=== PATIENT | male | born 1995 | race Caucasian/White ===

== ENCOUNTER 2018-01-24 01:08 | Observation (INO) | payer BC ==
[~2018-01-24] VITALS: Ht 177.8 cm; Wt 92.8 kg
[2018-01-24] MEDS ORDERED: SODIUM CHLORIDE 0.9% 1000ML 1,000 ML IV STA ×2 (01:29→02:03)
--- NOTE | 2018-01-24 01:32 | EMERGENCY ROOM VISIT NOTE ---
History Report prepared by Adam: Trish Quiroz Under the Supervision of: Dr. Bryan Hebert M.D. First contact with patient: 01:18 Chief Complaint: CONFUSION Stated Complaint: CONFUSION Nursing Triage Summary: pt brought to ed via ems from home. per ems pts mother was talking to the pt 2 hours prior and he was very confused. pt has history of disautonomia and she was concerned. per ems pt was alert and oriented x 4. pt reports that he is in the hospital and know his name and birthday. pt is not oriented to time or situation. History of Present Illness The patient is a 22 year old male who presents to the Emergency Room with complaints of persistent general confusion since 0000 today. Per EMS, the mother called 911 because the patient seemed confused over the phone. The patient states that he does not remember talking to his mother and he cannot remember what he did over the weekend. The patient knows he is in the hospital and that he arrived here via ambulance. EMS brought in a significant amount of prescriptions with the patient. The patient states it is a possibility that he may have taken too much of his medication, though he is unsure. He denies any thoughts of self-harm or any history of SI. He denies any thoughts of self- harm. He reports a history of insomnia and takes Lunesta. He also reports taking Zoloft. He notes increased tiredness. He denies any abdominal pain, chest pain, headache, shortness of breath, back pain, leg swelling, or urinary symptoms. He denies any double vision or other visual changes. He denies any drug use. He reports being a student. He thinks he is a [employer] in college, though is unsure. He denies any recent exercise or supplement use. Source of History: patient Onset: 0000 today Position: other (general) Quality: other (confusion) Timing: other (persistent) Associated Symptoms: No headache, No chest pain, No SOB, No abdominal pain, No back pain, No urinary symptoms Note: Notes increased tiredness. Denies leg swelling, double vision, or vision changes. Review of Systems See HPI for pertinent positives & negatives. A total of 10 systems reviewed and were otherwise negative. Past Medical & Surgical Medical Problems: (1) Confusion and disorientation (2) Dysautonomia (3) Kinney disease Surgical Problems: (1) H/O foot surgery Family History Diabetes mellitus FHx: cancer FHx: heart disease Hypertension Social History Smoking Status: Never Smoker Smokeless Tobacco Use: No Alcohol Use: occasionally (3/week) Drug Use: marijuana (medical marijuana) Housing Status: lives alone Occupation Status: unemployed, [employer] student Current/Historical Medications Scheduled Amphetamine-Dextroamphetamine 25MG (Adderall Xr 25MG), 25 MG PO QAM Cetirizine (Zyrtec), 10 MG PO DAILY Fluticasone Propionate (Nasal) (Flonase Allergy Relief), 2 SPRY ERIN QAM Montelukast Sodium (Singulair), 10 MG PO QPM Pyridostigmine [place] (Mestinon Timespan), 180 MG PO BID Sertraline Hcl (Zoloft), 25 MG PO QPM Scheduled PRN Lorazepam (Ativan), 0.5 MG PO DAILY PRN for Anxiety Allergies Uncoded Allergies: PEANUTS (Allergy, Unknown, anaphylaxis, 01/24/18) Physical Exam Vital Signs Date Time Temp Pulse Resp B/P (MAP) Pulse Ox O2 Delivery O2 Flow Rate FiO2 01/24/18 03:30 93 12 158/73 98 Room Air 01/24/18 03:00 83 15 162/90 99 01/24/18 02:30 84 23 146/93 100 01/24/18 01:57 82 160/89 110 160/97 115 156/102 01/24/18 01:22 98 01/24/18 01:13 36.9 102 24 154/87 98 Room Air Physical Exam GENERAL: Patient is dehydrated appearing and in no acute distress. Appears slightly anticholinergic. EYES: No scleral icterus, unremarkable pupils. ENT: Mucous membranes dry, no nasal congestion. NECK: No masses appreciated, no meningismus, trachea is midline. RESPIRATORY: No dyspnea. Clear to auscultation and equal bilaterally. No wheeze , no rhonchi. CARDIOVASCULAR: Tachycardic rate and regular rhythm. No murmurs, rubs, gallops appreciated. GASTROINTESTINAL: Abdomen soft, nontender, no peritonitis. Bowel sounds positive. No masses appreciated. BACK: No midline tenderness, no CVA tenderness EXTREMITIES: Normal motion all extremities, no cyanosis, no edema. NEUROLOGIC: Confused, but alert and oriented, answers questions, though is vague on recent details. Appears to be trying to answer questions properly. No acute motor or sensory deficits, no focal weakness, cranial nerves grossly intact. SKIN: No rash, no jaundice, no diaphoresis. Medical Decision & Procedures ER Provider Diagnostic Interpretation: Radiology results and stated below per my review and radiologist interpretation : CT HEAD: No acute infarct, hemorrhage, mass or edema. No acute osseous abnormality. Sinuses are patent. Radiologist: Gera Vargas MD Study ready at 02:08 and initial results transmitted at 02:22 Laboratory Results 01/24/18 01:44 Red Blood Count 5.24, Mean Corpuscular Volume 85.1, Mean Corpuscular Hemoglobin 31.5, Mean Corpuscular Hemoglobin Concent 37.0, Mean Platelet Volume 9.2, Neutrophils (%) (Auto) 73.0, Lymphocytes (%) (Auto) 19.5, Monocytes (%) (Auto) 6.8, Eosinophils (%) (Auto) 0.3, Basophils (%) (Auto) 0.2, Neutrophils # (Auto) 7.28, Lymphocytes # (Auto) 1.94, Monocytes # (Auto) 0.68, Eosinophils # (Auto) 0.03, Basophils # (Auto) 0.02 01/24/18 01:44 Test 01/24/18 01:44 01/24/18 01:54 White Blood Count 9.97 K/uL (4.8-10.8) Red Blood Count 5.24 M/uL (4.7-6.1) Hemoglobin 16.5 g/dL (14.0-18.0) Hematocrit 44.6 % (42-52) Mean Corpuscular Volume 85.1 fL (80-100) Mean Corpuscular Hemoglobin 31.5 pg (25-34) Mean Corpuscular Hemoglobin Concent 37.0 g/dl (32-36) Platelet Count 227 K/uL (130-400) Mean Platelet Volume 9.2 fL (7.4-10.4) Neutrophils (%) (Auto) 73.0 % Lymphocytes (%) (Auto) 19.5 % Monocytes (%) (Auto) 6.8 % Eosinophils (%) (Auto) 0.3 % Basophils (%) (Auto) 0.2 % Neutrophils # (Auto) 7.28 K/uL (1.4-6.5) Lymphocytes # (Auto) 1.94 K/uL (1.2-3.4) Monocytes # (Auto) 0.68 K/uL (0.11-0.59) Eosinophils # (Auto) 0.03 K/uL (0-0.5) Basophils # (Auto) 0.02 K/uL (0-0.2) RDW Standard Deviation 36.2 fL (36.4-46.3) RDW Coefficient of Variation 11.8 % (11.5-14.5) Immature Granulocyte % (Auto) 0.2 % Immature Granulocyte # (Auto) 0.02 K/uL (0.00-0.02) Venous Blood pH 7.44 (7.36-7.41) Venous Blood Partial Pressure CO2 40 mmHg (38.0-50.0) Venous Blood Partial Pressure O2 51 mmHg Venous Blood HCO3 27 mmol/L Venous Blood Oxygen Saturation 84.9 % Venous Blood Base Excess 2.6 mEq/L Anion Gap 9.0 mmol/L (3-11) Est Creatinine Clear Calc Drug Dose 139.7 ml/min Estimated GFR () 131.2 Estimated GFR (Non- 113.2 BUN/Creatinine Ratio 12.6 (10-20) Osmolality 289 mOsm/kg (280-300) Calcium Level 9.1 mg/dl (8.5-10.1) Total Bilirubin 0.6 mg/dl (0.2-1) Aspartate Amino Transf (AST/SGOT) 20 U/L (15-37) Alanine Aminotransferase (ALT/SGPT) 23 U/L (12-78) Alkaline Phosphatase 51 U/L (45-117) Total Creatine Kinase 199 U/L (39-308) Total Protein 8.1 gm/dl (6.4-8.2) Albumin 4.5 gm/dl (3.4-5.0) Globulin 3.6 gm/dl (2.5-4.0) Albumin/Globulin Ratio 1.3 (0.9-2) Thyroid Stimulating Hormone (TSH) 3.210 uIu/ml (0.300-4.500) Salicylates Level < 1.7 mg/dl (2.8-20) Acetaminophen Level < 2 ug/ml (10-30) Ethyl Alcohol mg/dL < 3.0 mg/dl (0-3) Urine Color YELLOW Urine Appearance CLEAR (CLEAR) Urine pH 6.5 (4.5-7.5) Urine Specific [place] 1.021 (1.000-1.030) Urine Protein NEG (NEG) Urine Glucose (UA) NEG (NEG) Urine Ketones 1+ (NEG) Urine Occult Blood NEG (NEG) Urine Nitrite NEG (NEG) Urine Bilirubin NEG (NEG) Urine Urobilinogen NEG (NEG) Urine Leukocyte Esterase NEG (NEG) Urine WBC (Auto) 1-5 /hpf (0-5) Urine RBC (Auto) 0-4 /hpf (0-4) Urine Hyaline Casts (Auto) 1-5 /lpf (0-5) Urine Epithelial Cells (Auto) 0-5 /lpf (0-5) Urine Bacteria (Auto) NEG (NEG) Bedside Lactic Acid Venous 0.61 mmol/L (0.90-1.70) Urine Opiates Screen NEG (NEG) Urine Methadone, Qualitative NEG (NEG) Urine Barbiturates NEG (NEG) Urine Phencyclidine (PCP) Level NEG (NEG) Ur Amphetamine/Methamphetamine NEG (NEG) MDMA (Ecstasy) Screen NEG (NEG) Urine Benzodiazepines Screen NEG (NEG) Urine Cocaine Metabolite NEG (NEG) Urine Marijuana (THC) POS (NEG) Laboratory results as reviewed by me. Medications Administered Medications (Trade) Dose Ordered Sig/Swapna Route Start Time Stop Time Status Last Admin Dose Admin Sodium Chloride 1,000 ml @ 999 mls/hr Q1H1M STAT IV 01/24/18 01:29 01/24/18 02:29 DC 01/24/18 02:11 999 MLS/HR Sodium Chloride 1,000 ml @ 999 mls/hr Q1H1M STAT IV 01/24/18 02:03 01/24/18 03:03 DC 01/24/18 02:52 999 MLS/HR ECG Per My Interpretation Indication: altered mental status Rate (beats per minute): 89 Rhythm: normal sinus Findings: no acute ischemic change, no ectopy, other (Borderline criteria HTN, QTC 418, and QRS 78.) ED Course 0123: The patient was evaluated in room A2. A complete history and physical exam was performed. 0156: I spoke with the patients mother via the phone. She last spoke with the patient at 1300 yesterday and states that he was fine at that time. She spoke with him again at 0000 today and states that he was acting odd. She reports that he recently began medical marijuana treatment. She notes that he has had an episode similar to this a couple of years ago when he was diagnosed with dysautonomia. She agrees with workup and treatment plan as discussed. 0230: I reassessed the patient at this time. The patient is still tachycardic. 0253: I reassessed the patient at this time. I spoke with the patient's mother. He is still confused. She notes this episode is worse than his previous episode. She notes that he may have accidently overdosed on Mucinex this weekend. She states he recently had sinus congestion. 0311: I spoke with Dr. Cantu, hospitalist resident for Dr. Bryant. We discussed the patient's case. The patient will be evaluated by the [facility] for further management. 0429: I spoke with Dr. Bryant, [facility] hospitalist. We discussed the patient's case. He reports the patient has a history of Kinney disease. Medical Decision Differential: Toxicological, Infectious, Stroke, SAH, Trauma, Electrolyte Abnormality, Hypoglycemia, Alcohol Intoxication, Drug Intoxication, Cardiac Abnormality, Sepsis, Meningitis/Encephalitis, Trauma, Excited Delirium, Serotonin Syndrome, Psychiatric, amongst other pathologies entertained. 22 yr old male with known autonomic dysfunction issues arrives for evaluation of confusion that is apparently similar to previous episodes of crisis though seems worse than last time. On evaluation patient in minimal distress though is clearly confused but not altered/meningitic at all. He is dry appearing, tachycardic, and hypertensive. This with his confusion makes me concerned that he is anticholinergic and after going through his medication of which multiple could case this, including the entire empty blister pack of musinex. Given 2 L NSS and looking a bit better though still with confusion. He had EKG which was unremarkable. CT head looks OK. Labs look good with normal CK, normal Cr, normal WBC. No evidence of overdose of tyl/yoselyn and only positive in drug screen is marijuana which he has prescription for per mother. He was not significantly agitated thus I felt no need to given Ativan at this time. With normal work-up I feel that no need to get poison control involved at this time. He has no photo/phonophobia, no fevers, no wbc elevation, no nuchal ridgidity nor other findings of meningitis, thus I feel risks of LP outweigh benefits. Mother at bedside agrees with plan for hospitalist evaluation. Medication Reconcilliation Current Medication List: was personally reviewed by me Blood Pressure Screening Patient's blood pressure: Elevated blood pressure monitored by hospitalist Consults Time Called: [phone] Consulting Physician: Dr. Cantu, hospitalist resident for Dr. Bryant Returned Call: [phone] Cantu, hospitalist resident for Dr. Bryant. We discussed the patient's case. The patient will be evaluated by the [facility] for further management. 0429: I spoke with Dr. Bryant, [facility] hospitalist. We discussed the patient's case. He reports the patient has a history of Kinney disease. Impression Primary Impression: Confusion Additional Impression: Anticholinergic syndrome Scribe Attestation The scribe's documentation has been prepared under my direction and personally reviewed by me in its entirety. I confirm that the note above accurately reflects all work, treatment, procedures, and medical decision making performed by me. Departure Information Dispostion Being Evaluated By Hospitalist Patient Instructions My [facility] Problem Qualifiers
[2018-01-24 02:01] LABS: BASO % 0.2 %; BASO ABS # 0.02 K/uL (0-0.2); EOS % 0.3 %; EOS ABS # 0.03 K/uL (0-0.5); HEMATOCRIT 44.6 % (42-52); HEMOGLOBIN 16.5 g/dL (14.0-18.0); IG# 0.02 K/uL (0.00-0.02); LYMPH % 19.5 %; LYMPH ABS # 1.94 K/uL (1.2-3.4); MEAN CELL VOLUME 85.1 fL (80-100); MEAN CORPUSCULAR HEMOGLOBIN 31.5 pg (25-34); MEAN PLATELET VOLUME 9.2 fL (7.4-10.4); MONO % 6.8 %; MONO ABS # 0.68 K/uL (0.11-0.59); NEUT ABS # 7.28 K/uL (1.4-6.5); PLATELET COUNT 227 K/uL (130-400); RED CELL DISTRIBUTION WIDTH CV 11.8 % (11.5-14.5); RED CELL DISTRIBUTION WIDTH SD 36.2 fL (36.4-46.3); WHITE BLOOD COUNT 9.97 K/uL (4.8-10.8)
[2018-01-24 02:23] LABS: ALBUMIN 4.5 gm/dl (3.4-5.0); CALCIUM 9.1 mg/dl (8.5-10.1); CREATININE 0.95 mg/dl (0.60-1.40); POTASSIUM 3.5 mmol/L (3.5-5.1)
[2018-01-24 02:34] LABS: TOTAL PROTEIN 8.1 gm/dl (6.4-8.2)
[2018-01-24] MEDS ORDERED: MSTSR180 PO (03:07)
[2018-01-24] MEDS ORDERED: AMPH25CA PO (03:07)
[2018-01-24] MEDS ORDERED: LORA-741 PO (03:09)
[2018-01-24] MEDS ORDERED: FLUT0.15 NAE (03:09)
[2018-01-24] MEDS ORDERED: SERT1TAB72 PO (03:09)
[2018-01-24] MEDS ORDERED: MONT1TAB3 PO (03:09)
[2018-01-24] MEDS ORDERED: CETI10TA84 PO (03:09)
[2018-01-24] MEDS ORDERED: ALUMINUM/MAGNESIUM/SIMETH (MAALOX MAX) 30 ML UDC PO PRN (04:00)
[2018-01-24] MEDS ORDERED: MAGNESIUM HYDROXIDE SUSP 30 ML UDC PO PRN (04:00)
[2018-01-24] MEDS ORDERED: ACETAMINOPHEN 325 MG TAB PO PRN (04:00)
[2018-01-24] MEDS ORDERED: ONDANSETRON INJ 2 MG/ML 2 ML VIAL IV PRN (04:00)
[2018-01-24] MEDS ORDERED: POLYETHYLENE (MIRALAX) 17 GM PACK PO PRN (04:00)
--- NOTE | 2018-01-24 04:24 | History and Physical ---
History & Physical Date & Time of Service: Jan 24, 2018 at 04:17 Chief Complaint: Confusion Primary Care Physician: No Doctor, Assigned History of Present Illness Source: patient, family, clinic records Patient is a 22 year old male with a PMH of dysautonomia (POTS) presented to [facility] with worsening general confusion Per EMS the patient was called by his mother at around 0000 and he seemed confused over the phone. His mother therefore called EMS who brought the patient into the hospital. His mom notes that his was in his normal state of health when she phoned him earlier in the day. The patients notes he may have taken too much of his medication, but he can't be completely sure. He reports being tired and confused but no other symptoms. He denies any decreased mood, thought of self harm or history of SI. The patient recently had a cold with some post nasal drip and had been taking mucinex. In his collection of medications the EMS brought to the hospital his mucinex box which does not have any more capsules in it. His mom notes that he has had a significant work-up at the [facility] where he was diagnosed as having dysautonomia (POTS). He takes several medications for this and now he follows with a doctor in [place]. His doctor suggested the patient start medical marijuana which the patient started 2 weeks ago. His mom notes that the use of this has been helping with his symptoms. She notes he does not take drugs and does not have a history of marijuana use prior to the medical marijuana. He drinks 3-4 beers a week and he a student at [employer]. In the ED his vitals were 36.0, 102, 25, 154/87 and 98 on room air. His labs were unremarkable. His EKG was normal sinus rhythm of 89 with a QTC of 418. He had a CT scan of his head which was normal. Past Medical/Surgical History Medical Problems: (1) Confusion and disorientation Family History Dad- T2DM, HTN, HLD Mom- hypothyroidism, HLD Social History Smoking Status: Never Smoker Alcohol Use: occasionally Drug Use: none Housing status: lives alone Occupational Status: [employer] student Allergies Uncoded Allergies: PEANUTS (Allergy, Unknown, anaphylaxis, 01/24/18) Home Medications Scheduled Amphetamine-Dextroamphetamine 25MG (Adderall Xr 25MG), 25 MG PO QAM Cetirizine (Zyrtec), 10 MG PO DAILY Fluticasone Propionate (Nasal) (Flonase Allergy Relief), 2 SPRY ERIN QAM Montelukast Sodium (Singulair), 10 MG PO QPM Pyridostigmine [place] (Mestinon Timespan), 180 MG PO BID Sertraline Hcl (Zoloft), 25 MG PO QPM Scheduled PRN Lorazepam (Ativan), 0.5 MG PO DAILY PRN for Anxiety Review of Systems Constitutional: + fatigue, No fever, No chills, No sweats, No weight loss Eyes: No worsening of vision, No diplopia ENT: No hearing loss, No sore throat, No trouble swallowing Respiratory: No cough, No sputum, No shortness of breath Cardiovascular: No chest pain, No edema, No palpitations Abdomen: No pain, No nausea, No vomiting, No diarrhea, No constipation Musculoskeletal: No joint pain, No muscle pain, No swelling, No calf pain Neurologic: + memory loss, No weakness, No numbness/tingling Psychiatric: No substance abuse Integumentary: No rash, No itch, No new/changing skin lesions Physical Exam Vital Signs Date Time Temp Pulse Resp B/P (MAP) Pulse Ox O2 Delivery O2 Flow Rate FiO2 01/24/18 03:00 83 15 162/90 99 01/24/18 02:30 84 23 146/93 100 01/24/18 01:57 82 160/89 110 160/97 115 156/102 01/24/18 01:22 98 01/24/18 01:13 36.9 102 24 154/87 98 Room Air General Appearance: WD/WN, no apparent distress Head: normocephalic, atraumatic Eyes: normal inspection, EOMI ENT: hearing grossly normal, pharynx normal Neck: supple, no adenopathy, no JVD, no carotid bruits Respiratory/Chest: lungs clear, no respiratory distress, no accessory muscle use Cardiovascular: regular rate, rhythm, no murmur, normal peripheral pulses Abdomen/GI: normal bowel sounds, non tender, soft Back: normal inspection, no CVA tenderness Extremities/Musculoskelatal: no calf tenderness, no pedal edema, normal range of motion Neurologic/Psych: 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, no motor/sensory deficits, alert, normal reflexes, + disoriented (orientated to person, but not to place and partially to time (he knowns year, but not month or day)) Skin: normal color, warm/dry, no rash, + pertinent finding (dry lips, normal cap refill and moist MM) Diagnostics Laboratory Results Results Past 24 Hours Test 01/24/18 01:44 01/24/18 01:54 Range/Units White Blood Count 9.97 4.8-10.8 K/uL Red Blood Count 5.24 4.7-6.1 M/uL Hemoglobin 16.5 14.0-18.0 g/dL Hematocrit 44.6 42-52 % Mean Corpuscular Volume 85.1 80-100 fL Mean Corpuscular Hemoglobin 31.5 25-34 pg Mean Corpuscular Hemoglobin Concent 37.0 32-36 g/dl Platelet Count 227 130-400 K/uL Mean Platelet Volume 9.2 7.4-10.4 fL Neutrophils (%) (Auto) 73.0 % Lymphocytes (%) (Auto) 19.5 % Monocytes (%) (Auto) 6.8 % Eosinophils (%) (Auto) 0.3 % Basophils (%) (Auto) 0.2 % Neutrophils # (Auto) 7.28 1.4-6.5 K/uL Lymphocytes # (Auto) 1.94 1.2-3.4 K/uL Monocytes # (Auto) 0.68 0.11-0.59 K/uL Eosinophils # (Auto) 0.03 0-0.5 K/uL Basophils # (Auto) 0.02 0-0.2 K/uL RDW Standard Deviation 36.2 36.4-46.3 fL RDW Coefficient of Variation 11.8 11.5-14.5 % Immature Granulocyte % (Auto) 0.2 % Immature Granulocyte # (Auto) 0.02 0.00-0.02 K/uL Venous Blood pH 7.44 7.36-7.41 Venous Blood Partial Pressure CO2 40 38.0-50.0 mmHg Venous Blood Partial Pressure O2 51 mmHg Venous Blood HCO3 27 mmol/L Venous Blood Oxygen Saturation 84.9 % Venous Blood Base Excess 2.6 mEq/L Sodium Level 139 136-145 mmol/L Potassium Level 3.5 3.5-5.1 mmol/L Chloride Level 104 98-107 mmol/L Carbon Dioxide Level 26 21-32 mmol/L Anion Gap 9.0 3-11 mmol/L Blood Urea Nitrogen 12 7-18 mg/dl Creatinine 0.95 0.60-1.40 mg/dl Est Creatinine Clear Calc Drug Dose 139.7 ml/min Estimated GFR () 131.2 Estimated GFR (Non- 113.2 BUN/Creatinine Ratio 12.6 10-20 Random Glucose 96 70-99 mg/dl Osmolality 289 280-300 mOsm/kg Calcium Level 9.1 8.5-10.1 mg/dl Total Bilirubin 0.6 0.2-1 mg/dl Aspartate Amino Transf (AST/SGOT) 20 15-37 U/L Alanine Aminotransferase (ALT/SGPT) 23 12-78 U/L Alkaline Phosphatase 51 45-117 U/L Total Creatine Kinase 199 39-308 U/L Total Protein 8.1 6.4-8.2 gm/dl Albumin 4.5 3.4-5.0 gm/dl Globulin 3.6 2.5-4.0 gm/dl Albumin/Globulin Ratio 1.3 0.9-2 Thyroid Stimulating Hormone (TSH) 3.210 0.300-4.500 uIu/ml Salicylates Level < 1.7 2.8-20 mg/dl Acetaminophen Level < 2 10-30 ug/ml Ethyl Alcohol mg/dL < 3.0 0-3 mg/dl Urine Color YELLOW Urine Appearance CLEAR CLEAR Urine pH 6.5 4.5-7.5 Urine Specific [place] 1.021 1.000-1.030 Urine Protein NEG NEG Urine Glucose (UA) NEG NEG Urine Ketones 1+ NEG Urine Occult Blood NEG NEG Urine Nitrite NEG NEG Urine Bilirubin NEG NEG Urine Urobilinogen NEG NEG Urine Leukocyte Esterase NEG NEG Urine WBC (Auto) 1-5 0-5 /hpf Urine RBC (Auto) 0-4 0-4 /hpf Urine Hyaline Casts (Auto) 1-5 0-5 /lpf Urine Epithelial Cells (Auto) 0-5 0-5 /lpf Urine Bacteria (Auto) NEG NEG Bedside Lactic Acid Venous 0.61 0.90-1.70 mmol/L Urine Opiates Screen NEG NEG Urine Methadone, Qualitative NEG NEG Urine Barbiturates NEG NEG Urine Phencyclidine (PCP) Level NEG NEG Ur Amphetamine/Methamphetamine NEG NEG MDMA (Ecstasy) Screen NEG NEG Urine Benzodiazepines Screen NEG NEG Urine Cocaine Metabolite NEG NEG Urine Marijuana (THC) POS NEG Diagnostic Radiology CT head with no acute process EKG EKG w/ NSR of 89 with no acute ischemic changes Impression Assessment and Plan Trell is a 22 year old male with a PMH of Kinney disease presented to [facility] with confusion and likely to have anticholinergic toxicity secondary to recent mucinex and home med use. Confusion secondary to Anticholinergic toxicity - Repeat EKG in the AM - IVF NS at 200 mls/hr for 2 L - tylenol prn for fever - neuro checks q4hrs - takes pyridostigmine bromide at home and recently took a mucinex for URI. Both anticholinergics - hold home meds Pots Disease - hold home meds (adderal, pyridostigmine and zoloft) Seasonal Allergies - hold singulair, zyrtec and mucinex DVT - scd's FULL CODE Resident Physician Supervision Note: I was present with Dr. Khan during the history and exam. I discussed the case with the resident and agree with the findings and plan as documented in the note. Any exceptions or clarifications are listed here: 22 y/o M Hx POTS syndrome. Presents with confusion over the course of the day. The pt is tachycardic on arrival to the ER and has difficulty answering simple questions. The pt is taking a few anticholinergic meds and also takes Guaifenesin and has recently started a medical marijuana regimen. We suspect that his current confusion may be a medication effect. OE AAO x 1 S1,2 R CTAB NT, ND No CCE P: We do not have a definite etiology for the pt's confusion at present. We will hold his meds, provide IVF and assess for recovery. Neurology should be consulted if there is no short-term improvement. We may then need to consult his POTS specialist in [facility] regarding modification or discontinuation of his meds to avoid symptomatic relapse upon DC. Documented By: Joey Bryant Resuscitation Status VTE Prophylaxis Will order VTE Prophylaxis: Yes
[2018-01-24 05:00] VITALS: BP 144/82; PULSE 78; TEMP 36.8; O2SAT 97; Ht 177.8 cm; Wt 92.8 kg
[2018-01-24] MEDS: SODIUM CHLORIDE 0.9% 1000ML 1,000 ML IV SCH ×2 (05:20→10:11)
[2018-01-24] MEDS ORDERED: IV FLUIDS COMPLETED PRN (05:30)
--- NOTE | 2018-01-24 06:44 | DIAGNOSTIC IMAGING REPORT ---
HEAD WITHOUT CONTRAST (CT) CT DOSE: 537.48 mGy.cm HISTORY: Mental status change confusion TECHNIQUE: Multiaxial CT images of the head were performed without the use of intravenous contrast. A dose lowering technique was utilized adhering to the principles of ALARA. Comparison: None. Findings: The paranasal sinuses and mastoid air cells are clear. The calvarium and skull base are intact. The ventricles and sulci are within normal limits. There is no mass, hematoma, midline shift, or acute infarct. Impression: No acute intracranial abnormality. The above report was generated using voice recognition software. It may contain grammatical, syntax or spelling errors. Electronically signed by: El Zepeda M.D. 01/24/2018 6:43 AM Dictated Date/Time: 01/24/2018 6:42 AM
[2018-01-24 07:27] VITALS: BP 133/75; PULSE 82; TEMP 36.7; O2SAT 96
--- NOTE | 2018-01-24 09:09 | Family Medicine Progress Note ---
Progress Note Date of Service Jan 24, 2018. Subjective Pt evaluation today including: conversation w/ family Medications Current Inpatient Medications Medications (Trade) Dose Ordered Sig/Swapna Route Start Time Stop Time Status Last Admin Dose Admin Acetaminophen (Tylenol Tab) 650 mg Q4H PRN PO 01/24/18 04:00 02/23/18 03:59 Al Hydrox/Mg Hydrox/Simethicone (Maalox Max Susp) 15 ml Q4H PRN PO 01/24/18 04:00 02/23/18 03:59 Magnesium Hydroxide (Milk Of Magnesia Susp) 30 ml Q12H PRN PO 01/24/18 04:00 02/23/18 03:59 Ondansetron HCl (Zofran Inj) 4 mg Q6H PRN IV 01/24/18 04:00 02/23/18 03:59 Polyethylene (Miralax Powder Packet) 17 gm DAILY PRN PO 01/24/18 04:00 02/23/18 03:59 Sodium Chloride 1,000 ml @ 200 mls/hr Q5H IV 01/24/18 05:30 01/24/18 15:29 01/24/18 05:20 200 MLS/HR Miscellaneous (Iv Fluids Completed) 1 ea PRN PRN N/A 01/24/18 05:30 01/24/19 05:29 Objective Vital Signs Date Time Temp Pulse Resp B/P (MAP) Pulse Ox O2 Delivery O2 Flow Rate FiO2 01/24/18 07:27 36.7 82 20 133/75 (94) 96 Room Air 01/24/18 05:00 36.8 78 18 144/82 97 Room Air 01/24/18 04:30 90 14 164/85 95 Room Air 01/24/18 04:00 87 16 167/90 96 Room Air 01/24/18 03:30 93 12 158/73 98 Room Air 01/24/18 03:00 83 15 162/90 99 01/24/18 02:30 84 23 146/93 100 01/24/18 01:57 82 160/89 110 160/97 115 156/102 01/24/18 01:22 98 01/24/18 01:13 36.9 102 24 154/87 98 Room Air Laboratory Results Last Resulted 01/24/18 01:44 Red Blood Count 5.24, Mean Corpuscular Volume 85.1, Mean Corpuscular Hemoglobin 31.5, Mean Corpuscular Hemoglobin Concent 37.0, Mean Platelet Volume 9.2, Neutrophils (%) (Auto) 73.0, Lymphocytes (%) (Auto) 19.5, Monocytes (%) (Auto) 6.8, Eosinophils (%) (Auto) 0.3, Basophils (%) (Auto) 0.2, Neutrophils # (Auto) 7.28, Lymphocytes # (Auto) 1.94, Monocytes # (Auto) 0.68, Eosinophils # (Auto) 0.03, Basophils # (Auto) 0.02 Last Resulted 01/24/18 01:44 Past 24 Hours Test 01/24/18 01:44 Range/Units Total Creatine Kinase 199 39-308 U/L Assessment and Plan Trell is a 22 year old male with a PMH of Kinney disease presented to [facility] with confusion and likely to have anticholinergic toxicity secondary to recent mucinex and home med use. Confusion secondary to Anticholinergic toxicity - Repeat EKG in the AM - IVF NS at 200 mls/hr for 2 L - tylenol prn for fever - neuro checks q4hrs - takes pyridostigmine bromide at home and recently took a mucinex for URI. Both anticholinergics - hold home meds - Consider calling Dr Middleton/Cole in [place] (his POTS physicians) at [phone] POTS Disease - hold home meds (adderal, pyridostigmine and zoloft) Seasonal Allergies - hold singulair, zyrtec and mucinex DVTP: SCDs Code: Full Dispo: med/surg Resident Tracking Resident Involvement: Resident Care Provided Care Provided: Adult Hospital Medicine
[2018-01-24] MEDS ORDERED: PYRIDOSTIGMINE BROMIDE 180 MG SUSTAINED REL TAB PO SCH (10:30)
[2018-01-24] MEDS ORDERED: AMPHETAMINE DEXTROAMPHETAMINE 25 MG PO SCH (11:00)
[2018-01-24] MEDS ORDERED: PATIENT'S OWN CONTROLLED MED PO SCH (11:00)
[2018-01-24 11:23] VITALS: BP 127/79; PULSE 67; TEMP 36.6; O2SAT 95
--- NOTE | 2018-01-24 14:35 | Discharge Instructions ---
Discharge Instructions Date of Service Jan 24, 2018. Admission Reason for Admission: Confusion And Disorientation Discharge Discharge Diagnosis / Problem: Anticholinergic toxicity Discharge Goals Goal(s): Learn about illness, Prevent Disease Progression Activity Recommendations Activity Limitations: per Instructions/Follow-up section . Instructions / Follow-Up Instructions / Follow-Up During this admission, you were evaluated and treated for acute confusion and what was likely anticholinergic toxicity related to medication interactions We believe that you should avoid any unnecessary anticholinergic medications in the future (benadryl, scopolamine, mucinex, etc). We recommend that you follow up with your POTS specialist at your earliest convenience to discuss this visit and possible medication interactions or side effects that may have taken place. In the meantime, we recommend you follow up with one of our primary care physicians at the [facility] in the next 7-10 days. This will help you have some established local care with a physician who knows about your case. You will be notified of an appointment time. Stay hydrated as best you are able, especially in the next 2 hours. If you notice your symptoms return or worsen, please return to the ED. Current Hospital Diet Patient's current hospital diet: Regular Diet Discharge Diet Recommended Diet: Regular Diet Pending Studies Studies pending at discharge: no Medical Emergencies . Who to Call and When: Medical Emergencies: If at any time you feel your situation is an emergency, please call 911 immediately. . Non-Emergent Contact Non-Emergency issues call your: Primary Care Provider . . "Provider Documentation" section prepared by Fiorella Kelly. .
[2018-01-24 14:40] VITALS: BP 127/79; PULSE 67; TEMP 36.6; O2SAT 95
[2018-01-24 14:55] VITALS: BP 130/76; PULSE 79; TEMP 36.7; O2SAT 97
--- NOTE | 2018-01-24 19:13 | Discharge Summary ---
Discharge Summary Date of Service Jan 24, 2018. Discharge Summary Admission Date: Jan 24, 2018 at 03:58 Discharge Date: Jan 24, 2018 Discharge Disposition: Home Principal Diagnosis: polypharmacy Problems/Secondary Diagnoses: POTS Seasonal allergies Procedures: CT DOSE: 537.48 mGy.cm HISTORY: Mental status change confusion TECHNIQUE: Multiaxial CT images of the head were performed without the use of intravenous contrast. A dose lowering technique was utilized adhering to the principles of ALARA. Comparison: None. Findings: The paranasal sinuses and mastoid air cells are clear. The calvarium and skull base are intact. The ventricles and sulci are within normal limits. There is no mass, hematoma, midline shift, or acute infarct. Impression: No acute intracranial abnormality. The above report was generated using voice recognition software. It may contain grammatical, syntax or spelling errors. Electronically signed by: El Zepeda M.D. 01/24/2018 6:43 AM Last Resulted CBC 01/24/18 01:44 Red Blood Count 5.24, Mean Corpuscular Volume 85.1, Mean Corpuscular Hemoglobin 31.5, Mean Corpuscular Hemoglobin Concent 37.0, Mean Platelet Volume 9.2, Neutrophils (%) (Auto) 73.0, Lymphocytes (%) (Auto) 19.5, Monocytes (%) (Auto) 6.8, Eosinophils (%) (Auto) 0.3, Basophils (%) (Auto) 0.2, Neutrophils # (Auto) 7.28, Lymphocytes # (Auto) 1.94, Monocytes # (Auto) 0.68, Eosinophils # (Auto) 0.03, Basophils # (Auto) 0.02 Last Resulted BMP 01/24/18 01:44 Medication Reconciliation Continued Medications: Amphetamine-Dextroamphetamine 25MG (Adderall Xr 25MG) 1 Cap Cap 25 MG PO QAM Cetirizine (Zyrtec) 10 Mg Tab 10 MG PO DAILY Fluticasone Propionate (Nasal) (Flonase Allergy Relief) 50 Mcg/Act Spr 2 SPRY ERIN QAM Lorazepam (Ativan) 0.5 Mg Tab 0.5 MG PO DAILY PRN for Anxiety Montelukast Sodium (Singulair) 10 Mg Tab 10 MG PO QPM Pyridostigmine [place] ([place] Timespan) 180 Mg Tabcr 180 MG PO BID morning and afternoon Sertraline Hcl (Zoloft) 25 Mg Tab 25 MG PO QPM Discharge Exam Review of Systems: Constitutional: No fever, No chills Musculoskeletal: No joint pain, No muscle pain Neurologic: No memory loss, No weakness Physical Exam: General Appearance: no apparent distress Eyes: EOMI ENT: hearing grossly normal Neck: trachea midline Respiratory/Chest: no respiratory distress, no accessory muscle use Extremities: normal inspection 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 with confusion and likely to have anticholinergic toxicity secondary to recent mucinex and home med use. Per mother, over the course of 12 hours, he was becoming more confused and disoriented. He has been suffering from cold/allergy symptoms and had been taking mucinex and possibly benadryl in addition to his normal medications. Confusion secondary to Anticholinergic toxicity - Given IVF NS at 200 mls/hr for 2 L, full recovery to baseline - Consider calling Dr Middleton/Cole in [place] (his POTS physicians) at - Recomend he avoid anticholinergics. Patient believes symptoms were caused by modafinil - Patient recently started using medical marijuana from prescriber in [place]. Mom states that it has helped him return to school however has reservations now that he has had this episode. POTS Disease - resume home meds (adderal, pyridostigmine and zoloft) Seasonal Allergies - Resume singulair, zyrtec and recommend DCing mucinex Resident Physician Supervision Note: I interviewed and examined the patient. Discussed with Dr. Kelly and agree with findings and plan as documented in the note. Any exceptions or clarifications are listed here: None Documented By: Gera Ellis feeling better now. wonders if it was modafinil that made him act strange. vitals noted nad breathing unlabored no pallor or icterus altered mental status - most likely polypharmacy - marijuana + anticholinergics ? he wonders modafinil. for now would keep home med list unchnaged since this appears to have been his only episode like this, and was more likely to be a "perfect storm" of circumstances than one dominant issue. would avoid benadryl strictly, follow lucrecia sawyer PCP and POTS doctor, but since current med list has allowed him to be functional enough to get back to school, etc, and again this episode thus far has been his only (and quickly resolved) would hesitate to make sweeping changes. will f/u zahiday as well so all of his physicians are not hours away while he is here at school Total Time Spent: Greater than 30 minutes This includes examination of the patient, discharge planning, medication reconciliation, and communication with other providers. Discharge Instructions Please refer to the electronic Patient Visit Report (Discharge Instructions) for additional information. Additional Copies To Bryan Cantu .MD Resident Tracking Resident Involvement: Resident Care Provided Care Provided: Adult [facility] Medicine
[2018-01-24] MEDS ORDERED: SERTRALINE HCL 50 MG TAB PO SCH (21:00)
== END 2018-01-24 15:05 | disposition home or self-care (01) ==
LOC: EDBD 01:08 → C.EDA 01:10 → C.MS2W 03:58 → ENRESERV 04:12
PROVIDERS: ADMIT Internal Medicine; ATTEND Family Medicine
DX: T44.1X1A Poisoning by other parasympathomimetics [cholinergics], accidental (unintentional), initial encounter (principal); R41.0 Disorientation, unspecified; J30.2 Other seasonal allergic rhinitis; A18.01 Tuberculosis of spine; G90.1 Familial dysautonomia [Riley-Day]; Z83.3 Family history of diabetes mellitus; Z82.49 Family history of ischemic heart disease and other diseases of the circulatory system; Z79.899 Other long term (current) drug therapy; Z91.010 Allergy to peanuts